=== PATIENT | female | born 1945 | race Caucasian/White ===

== ENCOUNTER → 2019-11-13 13:07 | Outpatient (BNVA) | payer MEDICARE, MEDICAID, SELFPAY | PROVIDERS: Family Provider Family Medicine; PCP Family Medicine; Visit Provider Internal Medicine Rheumatology | DX: M31.30 Wegener's granulomatosis without renal involvement (principal); Z79.899 Other long term (current) drug therapy; Z79.52 Long term (current) use of systemic steroids; J44.9 Chronic obstructive pulmonary disease, unspecified; Z87.891 Personal history of nicotine dependence | CPT/HCPCS: 36415; 80053; 85007; 85027; 85651; 86140; 99214 ==

== ENCOUNTER → 2019-12-13 13:51 | Outpatient (BNVA) | payer MEDICARE, MEDICAID, SELFPAY | PROVIDERS: Family Provider Family Medicine; PCP Family Medicine; Visit Provider Social Worker | DX: F33.2 Major depressive disorder, recurrent severe without psychotic features (principal); F41.1 Generalized anxiety disorder | CPT/HCPCS: 90834 ==

== ENCOUNTER → 2019-12-18 10:21 | Outpatient (BNVA) | payer MEDICARE, MEDICAID, SELFPAY | PROVIDERS: Family Provider Family Medicine; PCP Family Medicine; Visit Provider Internal Medicine Rheumatology | DX: M31.30 Wegener's granulomatosis without renal involvement (principal); M80.00XD Age-related osteoporosis with current pathological fracture, unspecified site, subsequent encounter for fracture with routine healing; M05.79 Rheumatoid arthritis with rheumatoid factor of multiple sites without organ or systems involvement; M87.08 Idiopathic aseptic necrosis of bone, other site; Z79.52 Long term (current) use of systemic steroids; J44.9 Chronic obstructive pulmonary disease, unspecified | CPT/HCPCS: 99214 ==

== ENCOUNTER → 2019-12-19 14:02 | Outpatient (BNVA) | payer MEDICARE, MEDICAID, SELFPAY | PROVIDERS: Family Provider Family Medicine; PCP Family Medicine; Visit Provider Anesthesiology | DX: M48.061 Spinal stenosis, lumbar region without neurogenic claudication (principal); M51.17 Intervertebral disc disorders with radiculopathy, lumbosacral region; Z79.891 Long term (current) use of opiate analgesic | CPT/HCPCS: 99214 ==

== ENCOUNTER → 2020-01-04 11:47 | Outpatient (BNVA) | payer MEDICARE, MEDICAID, SELFPAY | PROVIDERS: Family Provider Family Medicine; PCP Family Medicine; Visit Provider Family Medicine | DX: N39.0 Urinary tract infection, site not specified (principal) | CPT/HCPCS: 81001; 87086 ==

== ENCOUNTER 2020-01-10 12:59 | Outpatient (CLI) | payer MEDICARE, MEDICAID, SELFPAY ==
[2020-01-10 13:59] LABS: Calcium 9.1 mg/dL (8.5-10.5); Phosphorus 3.7 mg/dL (2.5-4.5)
[2020-01-10 14:23] LABS: Calcium 9.1 mg/dL (8.5-10.5); Parathyroid Hormone 45.3 pg/mL (15-65)
== END 2020-01-10 13:00 | disposition home or self-care (01) ==
LOC: LAB 13:06
PROVIDERS: Family Provider Family Medicine; PCP Family Medicine; Visit Provider Internal Medicine Rheumatology
DX: M81.0 Age-related osteoporosis without current pathological fracture (principal); M05.79 Rheumatoid arthritis with rheumatoid factor of multiple sites without organ or systems involvement; M87.08 Idiopathic aseptic necrosis of bone, other site; M31.30 Wegener's granulomatosis without renal involvement
CPT/HCPCS: 82310; 83970; 84100

== ENCOUNTER → 2020-02-26 11:33 | Outpatient (BNVA) | payer MEDICARE, MEDICAID, SELFPAY | PROVIDERS: Family Provider Family Medicine; PCP Family Medicine; Visit Provider Nurse Practitioner Family | DX: M25.512 Pain in left shoulder (principal) | CPT/HCPCS: 71046; 73030 ==

== ENCOUNTER → 2020-04-21 15:13 | Outpatient (BNVA) | payer MEDICARE, MEDICAID, SELFPAY | PROVIDERS: Family Provider Family Medicine; PCP Family Medicine; Visit Provider Internal Medicine Rheumatology | DX: M31.30 Wegener's granulomatosis without renal involvement (principal); M05.79 Rheumatoid arthritis with rheumatoid factor of multiple sites without organ or systems involvement; Z79.899 Other long term (current) drug therapy; I10 Essential (primary) hypertension; I48.91 Unspecified atrial fibrillation; J44.9 Chronic obstructive pulmonary disease, unspecified; M81.0 Age-related osteoporosis without current pathological fracture; R79.89 Other specified abnormal findings of blood chemistry; Z79.01 Long term (current) use of anticoagulants; Z79.52 Long term (current) use of systemic steroids | CPT/HCPCS: 99214 ==

== ENCOUNTER → 2020-04-25 13:32 | Outpatient (BNVA) | payer MEDICARE, MEDICAID, SELFPAY | PROVIDERS: Family Provider Family Medicine; PCP Nurse Practitioner Family; Visit Provider Anesthesiology | DX: M54.42 Lumbago with sciatica, left side (principal); M54.9 Dorsalgia, unspecified; Z79.891 Long term (current) use of opiate analgesic | CPT/HCPCS: 99212; 99214 ==

== ENCOUNTER → 2020-05-20 09:50 | Outpatient (BNVA) | payer MEDICARE, MEDICAID, SELFPAY | PROVIDERS: Family Provider Family Medicine; PCP Nurse Practitioner Family; Visit Provider Anesthesiology | DX: M51.17 Intervertebral disc disorders with radiculopathy, lumbosacral region (principal); M48.061 Spinal stenosis, lumbar region without neurogenic claudication; M54.9 Dorsalgia, unspecified; Z79.891 Long term (current) use of opiate analgesic | CPT/HCPCS: 99213; 99214 ==

== ENCOUNTER → 2020-07-15 13:07 | Outpatient (BNVA) | payer MEDICARE, MEDICAID, SELFPAY | PROVIDERS: Family Provider Family Medicine; PCP Nurse Practitioner Family; Visit Provider Anesthesiology | DX: M48.061 Spinal stenosis, lumbar region without neurogenic claudication (principal); M51.17 Intervertebral disc disorders with radiculopathy, lumbosacral region; M54.9 Dorsalgia, unspecified; Z79.891 Long term (current) use of opiate analgesic | CPT/HCPCS: 99213; 99214 ==

== ENCOUNTER → 2020-09-02 13:38 | Outpatient (BNVA) | payer MEDICARE, MEDICAID, SELFPAY | PROVIDERS: Family Provider Family Medicine; PCP Nurse Practitioner Family; Visit Provider Anesthesiology | DX: M51.17 Intervertebral disc disorders with radiculopathy, lumbosacral region (principal); M54.9 Dorsalgia, unspecified; M48.061 Spinal stenosis, lumbar region without neurogenic claudication; Z79.891 Long term (current) use of opiate analgesic | CPT/HCPCS: 99213; 99214 ==

== ENCOUNTER → 2020-09-19 09:56 | Outpatient (BNVA) | payer MEDICARE, MEDICAID, SELFPAY | PROVIDERS: Family Provider Family Medicine; PCP Nurse Practitioner Family; Visit Provider Anesthesiology | DX: M51.17 Intervertebral disc disorders with radiculopathy, lumbosacral region (principal); M48.061 Spinal stenosis, lumbar region without neurogenic claudication; M54.9 Dorsalgia, unspecified; Z79.891 Long term (current) use of opiate analgesic | CPT/HCPCS: 99213; 99214 ==

== ENCOUNTER 2020-09-25 11:29 | Emergency (ER) | payer MEDICARE, MEDICAID, SELFPAY ==
[2020-09-25] VITALS (8 sets, daily range): BP systolic 110–136; BP diastolic 54–79; PULSE 71–86; RESP 14–16; TEMP 36.7; O2SAT 93–100; BMI 2530.8
--- NOTE | 2020-09-25 11:45 | XR_ITS ---
WS: [id number] Exam: XR chest 1V portable [id number] Date/Time of Exam: 09/25/2020 11:45 AM Reason For Exam: fever, weakness, r/o covid Comparison 02/26/2020. Chronic pulmonary changes noted in the right upper lobe. No acute infiltrates are seen. The lungs are fully inflated and otherwise clear. Heart size is normal. The mediastinum is not widened. Bony struc tures are intact. XR/XR chest 1V portable [id number] IMPRESSION: 1. Chronic right upper lobe changes. No acute process identified.
--- NOTE | 2020-09-25 11:46 | ECG_ITS ---
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 Measurements Intervals [place] Rate: 71 P: CT: QRS: -60 QRSD: 80 T: 60 QT: 355 QTc: 387 Interpretive Statements ATRIAL FIBRILLATION POSSIBLE RIGHT VENTRICULAR CONDUCTION DELAY [RSR (QR) IN V1/V2] LEFT ANTERIOR FASCICULAR BLOCK [QRS AXIS <= -45, QR IN I, RS IN II] Compared to ECG 09/05/2019 23:45:35 Left anterior fascicular block now present Left-axis deviation no longer present ST (T wave) deviation no longer present Electronically Signed On 09-25-2020 22:00:29 TRACK DRESSER by Kevin Da Silva M.D. [id number] f
[2020-09-25] MEDS: sodium chloride 0.9% 1,000 ML 75 ML IV (12:00)
[2020-09-25 12:33] LABS: Basophils % 0.3 %; Hematocrit 34.3 % (37.0-47.0); Hemoglobin 10.9 g/dL (11.5-15.3); Lymphocytes # 0.6 10^3/uL (0.8-4.8); Lymphocytes % 6.2 %; Mean Corpuscular HGB Conc 31.8 g/dL (30.0-36.0); Mean Corpuscular Hemoglobin 31.4 pg (28.0-34.0); Mean Corpuscular Volume 98.8 fL (81-99); Mean Platelet Volume 9.2 fL (7.4-10.4); Monocytes # 0.4 10^3/uL (0.2-0.9); Monocytes % 3.9 %; Neutrophils # 8.41 10^3/uL (1.8-7.7); Neutrophils % 89.4 %; Nucleated Red Blood Cells % 0 %; Platelet Count 226 10^3/cmm (130-400); Red Blood Count 3.47 10^6/uL (4.1-5.3); Red Cell Distribution Width 13.6 % (12.1-15.1); White Blood Count 9.4 10^3/uL (4.0-10.0)
[2020-09-25 12:48] LABS: SARS Covid-2 Antigen Negative (Negative)
--- NOTE | 2020-09-25 12:48 | W.ED.WEAKNES ---
HPI - Weakness General: Chief complaint: Weakness Stated complaint: Fever/Soreness Time Seen by Provider: 09/25/20 11:38 History of Present Illness: HPI Narrative: This patient is a 75-year-old female who comes in today with complaints of body aches, fever, weakness. She started feeling poorly a few days ago and has progressed. The fever was noted this morning. She has a history of chronic UTIs and takes Macrobid daily. She is also on prednisone for Lakhwinder's granulomatosis. Her is currently in the hospital and she has been visiting here quite a bit and has been under some stress because of this. Her daughter is with her today and concerned that she is not eating and drinking and taking care of her self. She had a documented fever at home but since has taken Tylenol and [place]. She was afebrile here. Her was diagnosed with Covid in mid August. He was admitted for some time then but is now here for unrelated issues. The patient herself says she has been tested multiple times but not since about the third week of August. Associated symptoms: Reports fever(s); Denies chest pain, chills, easy bruising, headache(s), nausea or vomiting Review of Systems General: Reports: 10 or more systems reviewed and unremarkable except in HPI and below Const: Reports: fever(s), fatigue and malaise; Denies: chills Eyes: Denies: change in vision ENMT: Denies: odynophagia Card: Denies: chest pain or swelling of feet/ankles Resp: Reports: dyspnea and non-productive cough; Denies: productive cough GI: Denies: abdominal pain, nausea or vomiting : Denies: flank pain or difficulty voiding Musc: Reports: extremity pain (Right arm); Denies: neck pain or back pain Skin/Breast: Denies: rash Neuro: Denies: headache(s), numbness in extremities or weakness in extremities [place]/Lymph: Denies: easy bruising or easy bleeding [facility] ED PFSH: Medical History Bisphosphonate-associated osteonecrosis of the jaw Dorsalgia, unspecified Intervertebral disc disorders with radiculopathy, lumbosacral region Osteoporosis Seropositive rheumatoid arthritis of multiple joints Spinal stenosis, lumbar region without neurogenic claudication 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) Surgical History H/O bilateral cataract extraction H/O hernia repair H/O thyroidectomy History of kyphoplasty in Back 11/21/[address] [place] [address] Gutierrez Hx laparoscopic cholecystectomy Family History Other Cancer Denies family history of Rheumatoid arthritis Diabetes Lupus Anesthesia complication Bleeding disorder Social History Smoking and tobacco status: never smoked Second hand smoke exposure: No Alcohol intake: never Marital status: Current occupational status: retired History of recent travel: No (12/18/19) Physical Exam Const: COMMON NORMALS: no acute distress, patient oriented x3, no limitations and alert GENERAL APPEARANCE: cooperative, comfortable, well kempt, frail appearing and other (Kyphotic) NUTRITIONAL APPEARANCE: thin HENMT: HEAD & SCALP: normal to inspection FACE & SINUS: normal facial exam Eye: GENERAL EYE: appearance normal, both eyes and all related structures Neck/C-Spine: COMMON NORMALS: supple, no meningeal signs and no JVD Chest: COMMONS NORMALS: normal inspection of the chest CHEST: Yes other (Kyphotic) Resp: COMMON NORMALS: normal respiratory effort, No use of accessory muscles and clear to auscultation bilaterally AUSCULTATION: clear to auscultation bilaterally Cardio: COMMON NORMALS: no JVD, regular rate, regular rhythm and No murmurs present (Cardio) RATE: regular rate RHYTHM: regular rhythm GI: COMMON NORMALS: Normal to inspection, nondistended, normoactive bowel sounds present, Soft to palpation and non-tender INSPECTION: Yes normal to inspection AUSCULTATION: Yes normoactive bowel sounds PALPATION: Yes Soft to palpation Back/Pelvis: COMMON NORMALS: thoracic and lumbar spine normal to inspection Extremity: COMMON NORMALS: normal to inspection Neuro: COMMON NORMALS: patient oriented x3, moves all extremities, no focal motor deficits and no sensory deficits noted SENSORIUM/ORIENTATION: Yes alert MENINGEAL SIGNS: Yes no meningeal signs Psych: COMMON NORMALS: mental status grossly normal, cooperative and normal affect APPEARANCE: Yes well kempt Skin: COMMON NORMALS: no rashes or lesions noted and turgor normal GENERAL SKIN EXAM: no rashes or lesions noted and turgor normal Course ED course: Ms. Pal had a pretty unremarkable work-up. She would like to go home and I see no reason why she cannot. We discussed the importance of making sure she is getting enough rest. Her is here in the hospital and she admits to being a worrier. She said she is having difficulty sleeping and we discussed some possible sleep medications. She is already on trazodone. I suggested a very tiny dose of Xanax and her daughter did not like the idea at all. I encouraged her to discuss these concerns with her primary care doctor. Vital Signs: Vital signs: Vital Signs Temperature 98.1 F 09/25/20 11:34 Pulse Rate 86 09/25/20 17:58 Respiratory Rate 14 09/25/20 17:58 Blood Pressure 129/76 09/25/20 17:58 Pulse Oximetry 93 09/25/20 17:58 MDM - Weakness Lab Data: Labs: Lab Results 09/25/20 09/25/20 09/25/20 Range/Units 12:15 12:15 12:15 WBC 9.4 (4.0-10.0) 10^3/ uL RBC 3.47 L (4.1-5.3) 10^6/u L Hgb 10.9 L (11.5-15.3) g/dL Hct 34.3 L (37.0-47.0) % MCV 98.8 (81-99) fL MCH 31.4 (28.0-34.0) pg MCHC 31.8 (30.0-36.0) g/dL RDW 13.6 (12.1-15.1) % Plt Count 226 (130-400) 10^3/c mm MPV 9.2 (7.4-10.4) fL Neut % (Auto) 89.4 % Lymph % (Auto) 6.2 % Butts % (Auto) 3.9 % Eos % (Auto) 0.0 % Baso % (Auto) 0.3 % Neut # (Auto) 8.41 H (1.8-7.7) 10^3/u L Lymph # (Auto) 0.6 L (0.8-4.8) 10^3/u L Butts # (Auto) 0.4 (0.2-0.9) 10^3/u L Eos # (Auto) 0.0 (0.0-0.8) 10^3/u L Baso # (Auto) 0.0 (0.0-0.1) 10^3/u L Nucleated RBC % (a uto) 0 % Nucleated RBCs # 0.0 /100WBC PT 18.10 H (12.1-14.9) SECO NDS INR 1.45 H (0.8-1.2) Fibrinogen 462 (174-498) mg/dL D-Dimer 6.92 H (0-0.59) ug/mIFE U Sodium 138 (136-145) mmol/L Potassium 4.1 (3.5-5.1) mmol/L Chloride 99 (98-107) mmol/L Carbon Dioxide 25 (22-29) mmol/L Anion Gap 18.1 (5-19) BUN 14 (8-23) mg/dL Creatinine 0.6 (0.5-0.9) mg/dL GFR Calculation Not Reportable Glucose 117 H (65-115) mg/dL Calculated Osmolal ity 288 (285-295) mOsm/k g Lactic Acid (0.5-2.2) mmol/L Lactic Acid (Sepsi s) (0.5-2.2) mmol/L Calcium 8.7 (8.5-10.5) mg/dL Magnesium 1.8 (1.7-2.3) mg/dL Ferritin 136 (15-150) ng/mL Total Bilirubin 0.6 (0.15-1.2) mg/dL AST 13 (0-32) U/L ALT 6 (0-33) U/L Alkaline Phosphata se 67 (35-105) IU/L Lactate Dehydrogen ase 183 (135-214) U/L Troponin T Baselin e (0-10) ng/L Troponin T 120 Min seminole (0-10) ng/L Delta Troponin T (0-10) ABS# C-Reactive Protein 32.4 H (0.0-4.9) mg/L NT-Pro-B Natriuret Pep 2608 H (0-450) pg/mL Total Protein 6.1 L (6.6-8.7) g/dL Albumin 3.3 L (3.5-5.2) g/dL Globulin 2.8 (1.3-4.6) g/dL Procalcitonin 0.10 (0-0.5) ng/mL Urine Color (Yellow) Urine Appearance (CLEAR) Urine pH (5-7) Ur Specific Gravit y (1.005-1.030) Urine Protein (Negative) Urine Glucose (UA) (Normal) Urine Ketones (Negative) Urine Blood (Negative) Urine Nitrate (Negative) Urine Bilirubin (Negative) Urine Urobilinogen (Negative) mg/dL Ur Leukocyte Aixa ase (Negative) Urine RBC (0-2) /hpf Urine WBC (0-5) /hpf Ur Squamous Epith Cells (0-5) /hpf Ur Transition Epit h Cell /hpf Amorphous Sediment Urine Bacteria (NONE) /hpf Urine Mucus /hpf Digoxin (0.6-1.2) ng/mL Influenza Type A A g (Negative) Influenza Type B A g (Negative) SARS-CoV-2 Ag (Rap id) (Negative) 09/25/20 09/25/20 09/25/20 Range/Units 12:15 12:15 12:15 WBC (4.0-10.0) 10^3/ uL RBC (4.1-5.3) 10^6/u L Hgb (11.5-15.3) g/dL Hct (37.0-47.0) % MCV (81-99) fL MCH (28.0-34.0) pg MCHC (30.0-36.0) g/dL RDW (12.1-15.1) % Plt Count (130-400) 10^3/c mm MPV (7.4-10.4) fL Neut % (Auto) % Lymph % (Auto) % Butts % (Auto) % Eos % (Auto) % Baso % (Auto) % Neut # (Auto) (1.8-7.7) 10^3/u L Lymph # (Auto) (0.8-4.8) 10^3/u L Butts # (Auto) (0.2-0.9) 10^3/u L Eos # (Auto) (0.0-0.8) 10^3/u L Baso # (Auto) (0.0-0.1) 10^3/u L Nucleated RBC % (a uto) % Nucleated RBCs # /100WBC PT (12.1-14.9) SECO NDS INR (0.8-1.2) Fibrinogen (174-498) mg/dL D-Dimer (0-0.59) ug/mIFE U Sodium (136-145) mmol/L Potassium (3.5-5.1) mmol/L Chloride (98-107) mmol/L Carbon Dioxide (22-29) mmol/L Anion Gap (5-19) BUN (8-23) mg/dL Creatinine (0.5-0.9) mg/dL GFR Calculation Glucose (65-115) mg/dL Calculated Osmolal ity (285-295) mOsm/k g Lactic Acid 2.4 H (0.5-2.2) mmol/L Lactic Acid (Sepsi s) (0.5-2.2) mmol/L Calcium (8.5-10.5) mg/dL Magnesium (1.7-2.3) mg/dL Ferritin (15-150) ng/mL Total Bilirubin (0.15-1.2) mg/dL AST (0-32) U/L ALT (0-33) U/L Alkaline Phosphata se (35-105) IU/L Lactate Dehydrogen ase (135-214) U/L Troponin T Baselin e 45 H (0-10) ng/L Troponin T 120 Min seminole (0-10) ng/L Delta Troponin T (0-10) ABS# C-Reactive Protein (0.0-4.9) mg/L NT-Pro-B Natriuret Pep (0-450) pg/mL Total Protein (6.6-8.7) g/dL Albumin (3.5-5.2) g/dL Globulin (1.3-4.6) g/dL Procalcitonin (0-0.5) ng/mL Urine Color (Yellow) Urine Appearance (CLEAR) Urine pH (5-7) Ur Specific Gravit y (1.005-1.030) Urine Protein (Negative) Urine Glucose (UA) (Normal) Urine Ketones (Negative) Urine Blood (Negative) Urine Nitrate (Negative) Urine Bilirubin (Negative) Urine Urobilinogen (Negative) mg/dL Ur Leukocyte Aixa ase (Negative) Urine RBC (0-2) /hpf Urine WBC (0-5) /hpf Ur Squamous Epith Cells (0-5) /hpf Ur Transition Epit h Cell /hpf Amorphous Sediment Urine Bacteria (NONE) /hpf Urine Mucus /hpf Digoxin (0.6-1.2) ng/mL Influenza Type A A g Negative (Negative) Influenza Type B A g Negative (Negative) SARS-CoV-2 Ag (Rap id) (Negative) 09/25/20 09/25/20 09/25/20 Range/Units 12:15 12:15 13:45 WBC (4.0-10.0) 10^3/ uL RBC (4.1-5.3) 10^6/u L Hgb (11.5-15.3) g/dL Hct (37.0-47.0) % MCV (81-99) fL MCH (28.0-34.0) pg MCHC (30.0-36.0) g/dL RDW (12.1-15.1) % Plt Count (130-400) 10^3/c mm MPV (7.4-10.4) fL Neut % (Auto) % Lymph % (Auto) % Butts % (Auto) % Eos % (Auto) % Baso % (Auto) % Neut # (Auto) (1.8-7.7) 10^3/u L Lymph # (Auto) (0.8-4.8) 10^3/u L Butts # (Auto) (0.2-0.9) 10^3/u L Eos # (Auto) (0.0-0.8) 10^3/u L Baso # (Auto) (0.0-0.1) 10^3/u L Nucleated RBC % (a uto) % Nucleated RBCs # /100WBC PT (12.1-14.9) SECO NDS INR (0.8-1.2) Fibrinogen (174-498) mg/dL D-Dimer (0-0.59) ug/mIFE U Sodium (136-145) mmol/L Potassium (3.5-5.1) mmol/L Chloride (98-107) mmol/L Carbon Dioxide (22-29) mmol/L Anion Gap (5-19) BUN (8-23) mg/dL Creatinine (0.5-0.9) mg/dL GFR Calculation Glucose (65-115) mg/dL Calculated Osmolal ity (285-295) mOsm/k g Lactic Acid (0.5-2.2) mmol/L Lactic Acid (Sepsi s) (0.5-2.2) mmol/L Calcium (8.5-10.5) mg/dL Magnesium (1.7-2.3) mg/dL Ferritin (15-150) ng/mL Total Bilirubin (0.15-1.2) mg/dL AST (0-32) U/L ALT (0-33) U/L Alkaline Phosphata se (35-105) IU/L Lactate Dehydrogen ase (135-214) U/L Troponin T Baselin e (0-10) ng/L Troponin T 120 Min seminole (0-10) ng/L Delta Troponin T (0-10) ABS# C-Reactive Protein (0.0-4.9) mg/L NT-Pro-B Natriuret Pep (0-450) pg/mL Total Protein (6.6-8.7) g/dL Albumin (3.5-5.2) g/dL Globulin (1.3-4.6) g/dL Procalcitonin (0-0.5) ng/mL Urine Color Yellow (Yellow) Urine Appearance Clear (CLEAR) Urine pH 7 (5-7) Ur Specific Gravit y 1.010 (1.005-1.030) Urine Protein Neg (Negative) Urine Glucose (UA) Norm (Normal) Urine Ketones Negative (Negative) Urine Blood Neg (Negative) Urine Nitrate Negative (Negative) Urine Bilirubin Neg (Negative) Urine Urobilinogen Norm (Negative) mg/dL Ur Leukocyte Aixa ase 1+ H (Negative) Urine RBC Rare (0-2) /hpf Urine WBC 5-10 H (0-5) /hpf Ur Squamous Epith Cells 0-4 H (0-5) /hpf Ur Transition Epit h Cell 0-4 /hpf Amorphous Sediment Not Reportable Urine Bacteria Trace (NONE) /hpf Urine Mucus Trace /hpf Digoxin 1.5 H (0.6-1.2) ng/mL Influenza Type A A g (Negative) Influenza Type B A g (Negative) SARS-CoV-2 Ag (Rap id) Negative (Negative) 09/25/20 09/25/20 Range/Units 14:11 14:11 WBC (4.0-10.0) 10^3/ uL RBC (4.1-5.3) 10^6/u L Hgb (11.5-15.3) g/dL Hct (37.0-47.0) % MCV (81-99) fL MCH (28.0-34.0) pg MCHC (30.0-36.0) g/dL RDW (12.1-15.1) % Plt Count (130-400) 10^3/c mm MPV (7.4-10.4) fL Neut % (Auto) % Lymph % (Auto) % Butts % (Auto) % Eos % (Auto) % Baso % (Auto) % Neut # (Auto) (1.8-7.7) 10^3/u L Lymph # (Auto) (0.8-4.8) 10^3/u L Butts # (Auto) (0.2-0.9) 10^3/u L Eos # (Auto) (0.0-0.8) 10^3/u L Baso # (Auto) (0.0-0.1) 10^3/u L Nucleated RBC % (a uto) % Nucleated RBCs # /100WBC PT (12.1-14.9) SECO NDS INR (0.8-1.2) Fibrinogen (174-498) mg/dL D-Dimer (0-0.59) ug/mIFE U Sodium (136-145) mmol/L Potassium (3.5-5.1) mmol/L Chloride (98-107) mmol/L Carbon Dioxide (22-29) mmol/L Anion Gap (5-19) BUN (8-23) mg/dL Creatinine (0.5-0.9) mg/dL GFR Calculation Glucose (65-115) mg/dL Calculated Osmolal ity (285-295) mOsm/k g Lactic Acid (0.5-2.2) mmol/L Lactic Acid (Sepsi s) 0.9 (0.5-2.2) mmol/L Calcium (8.5-10.5) mg/dL Magnesium (1.7-2.3) mg/dL Ferritin (15-150) ng/mL Total Bilirubin (0.15-1.2) mg/dL AST (0-32) U/L ALT (0-33) U/L Alkaline Phosphata se (35-105) IU/L Lactate Dehydrogen ase (135-214) U/L Troponin T Baselin e (0-10) ng/L Troponin T 120 Min seminole 41.97 H (0-10) ng/L Delta Troponin T -3.03 L (0-10) ABS# C-Reactive Protein (0.0-4.9) mg/L NT-Pro-B Natriuret Pep (0-450) pg/mL Total Protein (6.6-8.7) g/dL Albumin (3.5-5.2) g/dL Globulin (1.3-4.6) g/dL Procalcitonin (0-0.5) ng/mL Urine Color (Yellow) Urine Appearance (CLEAR) Urine pH (5-7) Ur Specific Gravit y (1.005-1.030) Urine Protein (Negative) Urine Glucose (UA) (Normal) Urine Ketones (Negative) Urine Blood (Negative) Urine Nitrate (Negative) Urine Bilirubin (Negative) Urine Urobilinogen (Negative) mg/dL Ur Leukocyte Aixa ase (Negative) Urine RBC (0-2) /hpf Urine WBC (0-5) /hpf Ur Squamous Epith Cells (0-5) /hpf Ur Transition Epit h Cell /hpf Amorphous Sediment Urine Bacteria (NONE) /hpf Urine Mucus /hpf Digoxin (0.6-1.2) ng/mL Influenza Type A A g (Negative) Influenza Type B A g (Negative) SARS-CoV-2 Ag (Rap id) (Negative) Discharge Plan Discharge Patient Disposition: Home Clinical Impression: Episode of generalized weakness Condition: Stable Prescriptions: New Xanax 0.25 mg tablet 0.125 mg PO DAILY PRN (Reason: sleep) Qty: 10 RF: 0 No Action metoprolol tartrate 50 mg tablet 50 mg PO BID RF: 0 ferrous sulfate 325 mg (65 mg iron) tablet 325 mg PO BID RF: 0 Lactobacillus acidophilus 1 billion cell capsule 1,000 mmu cells PO .COMPLEX RF: 0 triamcinolone acetonide 55 mcg/actuation aerosol See Rx Instructions INTRANASAL DAILY RF: 0 hydrocortisone [Anusol-HC] 2.5 % cream with perineal applicator 1 applic OH TID PRN (Reason: UNKNOWN) RF: 0 Allergy Eye (naphazoline-phen) 0.025-0.3 % drops 2 drop ophthalmic (eye) DAILY RF: 0 btmokmii-ojphwrgzi-SX Drops,Suspension See Rx Instructions EAR-BOTH TID RF: 0 prednisone 10 mg tablet 10 mg PO TID RF: 0 nitrofurantoin macrocrystal 100 mg capsule 100 mg PO BEDTIME RF: 0 baclofen 10 mg tablet 10 mg PO TID 30 Days Qty: 90 RF: 0 furosemide [Lasix] 20 mg tablet 20 mg PO DAILY RF: 0 gabapentin 100 mg capsule 100 mg PO TID 30 Days Qty: 90 RF: 1 trazodone 100 mg tablet 100 mg PO .HS Qty: 30 RF: 5 lamotrigine 25 mg tablet 25 mg PO BID Qty: 60 RF: 5 Eliquis 5 mg tablet 5 mg PO BID Qty: 60 RF: 5 potassium chloride 10 mEq tablet extended release 10 meq PO BID Qty: 60 RF: 5 levothyroxine 75 mcg tablet 75 mcg PO DAILY Qty: 30 RF: 1 mirtazapine 7.5 mg tablet 7.5 mg PO DAILY Qty: 30 RF: 2 pantoprazole 40 mg tablet,delayed release (DR/EC) 40 mg PO DAILY Qty: 30 RF: 5 digoxin 125 mcg (0.125 mg) tablet 125 mcg PO DAILY Qty: 90 RF: 3 sertraline 100 mg tablet See Rx Instructions .ROUTE .COMPLEX Qty: 30 RF: 3 Magic Mouthwash See Rx Instructions .ROUTE .COMPLEX RF: 0 hydrocodone-acetaminophen 10-325 mg tablet 1 tab PO Q4H PRN (Reason: pain) RF: 0 buspirone 15 mg tablet 15 mg PO Q6H RF: 0 Discharge Orders: Discharge Order (Routine); Ordered 09/25/20 Ordered By: Ameena Ferguson Referrals: Toya Grider APN [Primary Care Provider] - Discharge Diet: Advance as tolerated Discharge Activity: Resume usual activity Patient Instructions: Weakness (ED) Activity Restrictions/Additional Instructions: Follow-up with your doctor to discuss medication changes. Try to rest and you can take 1/2 tablet of the alprazolam if you wake up early in the morning and cannot go back to sleep. Do not regularly take it at bedtime. Continue your regular trazodone at bedtime. Coding Level of Care Code ED Virology Teacher for Fili Fwjodi Exam Comprehensive
[2020-09-25 12:49] LABS: Influenza A by IFA Negative (Negative); Influenza B by IFA Negative (Negative)
[2020-09-25 12:50] LABS: Fibrinogen 462 mg/dL (174-498); INR 1.45 (0.8-1.2)
[2020-09-25 12:53] LABS: Lactic Sepsis W/Reflex 2.4 mmol/L (0.5-2.2)
[2020-09-25 12:55] LABS: Add Urine Microscopic? YES; Bilirubin Urine Neg (Negative); Blood Urine Neg (Negative); Glucose Urine UA Norm (Normal); Ketones Urine Negative (Negative); Leukocyte Esterase Urine 1+ (Negative); Nitrate Urine Negative (Negative); Protein Urine Neg (Negative); Urine Appearance Clear (CLEAR); Urine Color Yellow (Yellow); Urobilinogen Urine Norm (Negative); pH Urine 7 (5-7)
[2020-09-25 12:56] LABS: Bacteria Urine TRACE /hpf; RBC Urine RARE /hpf (0-2); Squamous Epithelial Cell Urine 0-4 /hpf (0-5); Transitional Epi Cells Urine 0-4 /hpf
[2020-09-25 12:57] LABS: Add Urine Culture? No; Mucus Urine TRACE /hpf; Troponin(5th) Baseline 45 ng/L (0-10)
[2020-09-25 13:00] LABS: D Dimer 6.92 ug/mIFEU (0-0.59)
--- NOTE | 2020-09-25 13:46 | ECG_ITS ---
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 Measurements Intervals [place] Rate: 89 P: RI: QRS: -56 QRSD: 81 T: 166 QT: 345 QTc: 420 Interpretive Statements ATRIAL FIBRILLATION LEFT ANTERIOR FASCICULAR BLOCK [QRS AXIS <= -45, QR IN I, RS IN II] NONSPECIFIC ST & T-WAVE ABNORMALITY Compared to ECG 09/25/2020 12:01:46 T-wave abnormality now present Electronically Signed On 09-25-2020 22:04:13 JEWEL DIAMETER GAUGER by Kevin Da Silva M.D. [id number]
[2020-09-25 13:59] LABS: Alanine Aminotransferase 6 U/L (0-33); Alkaline Phosphatase 67 IU/L (35-105); Anion Gap 18.1 (5-19); Aspartate Amino Transferase 13 U/L (0-32); Blood Urea Nitrogen 14 mg/dL (8-23); Calcium 8.7 mg/dL (8.5-10.5); Carbon Dioxide 25 mmol/L (22-29); Chloride 99 mmol/L (98-107); Ferritin 136 ng/mL (15-150); Globulin 2.8 g/dL (1.3-4.6); Lactate Dehydrogenase 183 U/L (135-214); Magnesium 1.8 mg/dL (1.7-2.3); Osmolality Calculated 288 mOsm/kg (285-295); Potassium 4.1 mmol/L (3.5-5.1); Sodium 138 mmol/L (136-145); Total Bilirubin 0.6 mg/dL (0.15-1.2)
[2020-09-25 14:10] LABS: Reflex Lactate Order REFLEX LACTIC ORDERD
--- NOTE | 2020-09-25 14:10 | CTR_ITS ---
PROCEDURE INFORMATION: Exam: CT Angiography Chest With Contrast Exam date and time: 09/25/2020 3:21 PM Age: 75 years old Clinical indication: Abnormal findings; Abnormal lab test; Other: Elevated d dimber; Fever; Abnormal diagnostic tests; Elevated d-dimer; Patient HX: Contrast leak, rescanned pulmonary study; Additional info: Fever, malaise, high d-dimer TECHNIQUE: Imaging protocol: Computed tomographic angiography of the chest with intravenous contrast. 3D rendering (Not supervised by radiologist): MIP and/or 3D reconstructed images were created by the technologist. Radiation optimization: All CT scans at this facility use at least one of these dose optimization techniques: automated exposure control; mA and/or kV adjustment per patient size (includes targeted exams where dose is matched to clinical indication); or iterative reconstruction. Contrast material: OMNI 350; Contrast volume: 95 ml; Contrast route: INTRAVENOUS (IV); COMPARISON: No relevant prior studies available. RADIATION DOSE METRICS: Total DLP (mGy-cm): 1308.97 FINDINGS: Pulmonary arteries: Normal. No pulmonary emboli. Aorta: Ectatic/tortuous thoracic aorta with moderate atherosclerotic calcification. Lungs: Relatively thick strands of fibrosis or atelectasis coursing through both upper lobes. Thinner subpleural reticular opacities in the lung bases suggesting mild pulmonary fibrosis or minor atelectasis. 5 mm partially calcified subpleural nodule posterior medial aspect of right lower lobe. 2.5 mm noncalcified subpleural nodule superior aspect of right middle lobe. 4 mm noncalcified subpleural nodule inferior-lateral aspect of left lower lobe. Pleural space: Unremarkable. No pneumothorax. No pleural effusion. Heart: Unremarkable. No cardiomegaly. No pericardial effusion. Lymph nodes: Unremarkable. No enlarged lymph nodes. Bones/joints: Exaggerated thoracic kyphosis with numerous mid and lower thoracic spine vertebral body compression fractures, presumably chronic. Soft tissues: Unremarkable. IMPRESSION: 1.) No acute process evident. 2.) Chronic appearing lung findings as described above including thick strands of fibrosis or atelectasis both upper lobes. 3.) Small 3-4 mm subpleural nodules as described above. Per Fleischner Society guidelines, low risk patient no routine follow-up indicated. High risk patient, consider optional CT chest at 12 months. PROCEDURE INFORMATION: Exam: CT Abdomen And Pelvis With Contrast Exam date and time: 09/25/2020 3:21 PM Age: 75 years old Clinical indication: Abnormal findings; Abnormal lab test; Other: Elevated d dimber; Fever; Abnormal diagnostic tests; Elevated d-dimer; Patient HX: Contrast leak, rescanned pulmonary study; Additional info: Fever, malaise, high d-dimer TECHNIQUE: Imaging protocol: Computed tomography of the abdomen and pelvis with intravenous contrast. Radiation optimization: All CT scans at this facility use at least one of these dose optimization techniques: automated exposure control; mA and/or kV adjustment per patient size (includes targeted exams where dose is matched to clinical indication); or iterative reconstruction. Contrast material: OMNI 350; Contrast volume: 95 ml; Contrast route: INTRAVENOUS (IV); COMPARISON: No relevant prior studies available. RADIATION DOSE METRICS: Total DLP (mGy-cm): 1308.97 FINDINGS: Liver: Normal. No mass. Gallbladder and bile ducts: Normal. No calcified stones. No ductal dilation. Pancreas: Normal. No ductal dilation. Spleen: Normal. No splenomegaly. Adrenal glands: Normal. No mass. Kidneys and ureters: Normal. No hydronephrosis. Stomach and bowel: Moderately pronounced sigmoid colon diverticulosis changes. No evidence for acute diverticulitis. Appendix: No evidence of appendicitis. Intraperitoneal space: Unremarkable. No free air. No significant fluid collection. Vasculature: Tortuous aorta and iliac arteries with mild atherosclerotic calcification. No aneurysm. Lymph nodes: Unremarkable. No enlarged lymph nodes. Urinary bladder: Unremarkable as visualized. Reproductive: Unremarkable as visualized. Bones/joints: Broad thoracolumbar dextroscoliosis. Multiple lumbar spine vertebral body compression fractures which are presumably chronic. Prior L3 and L5 cement injections. Soft tissues: Unremarkable. CT/CT angio chest w abd pel w con IMPRESSION: 1.) No acute process evident. 2.) Chronic findings as described above. Numerous chronic appearing thoracic and lumbar spine vertebral body compression fractures. Radiation Dose CTDIVOL = (mGy): DLP = 1308.97~1308.97 (mGy-cm)
[2020-09-25 14:18] LABS: Digoxin 1.5 ng/mL (0.6-1.2)
[2020-09-25 14:44] LABS: Lactic Acid level (Lactate) 0.9 mmol/L (0.5-2.2)
[2020-09-25 14:46] LABS: Troponin 5 2HR 41.97 ng/L (0-10)
[2020-09-25 14:47] LABS: Troponin 5 2HR Delta -3.03 ABS# (0-10)
[2020-09-25 14:52] LABS: Albumin Level 3.3 g/dL (3.5-5.2); C Reactive Protein 32.4 mg/L (0.0-4.9); Glucose 117 mg/dL (65-115); Total Protein 6.1 g/dL (6.6-8.7)
[2020-09-25 14:54] LABS: NT Pro B Type Natriuretic Pept 2608 pg/mL (0-450)
== END 2020-09-25 17:59 | disposition home or self-care (01) ==
PROVIDERS: Emergency Provider Emergency Medicine; PCP Nurse Practitioner Family
DX: R53.1 Weakness (principal); Z79.01 Long term (current) use of anticoagulants
CPT/HCPCS: 12345; 36415; 71045; 71275; 74177; 80053; 80162; 81001; 82728; 83605; 83615; 83735; 83880; 84145; 84484; 85025; 85378; 85384; 85610; 86140; 87040; 87426; 87804; 93005; 96360; 96361; 99283; 99284; J7030

== ENCOUNTER → 2020-12-02 14:19 | Outpatient (BNVA) | payer MEDICARE, MEDICAID, SELFPAY | PROVIDERS: PCP Nurse Practitioner Family; Visit Provider Nurse Practitioner | DX: M48.061 Spinal stenosis, lumbar region without neurogenic claudication (principal); M51.17 Intervertebral disc disorders with radiculopathy, lumbosacral region; M54.9 Dorsalgia, unspecified; M25.512 Pain in left shoulder; M05.79 Rheumatoid arthritis with rheumatoid factor of multiple sites without organ or systems involvement; Z79.891 Long term (current) use of opiate analgesic | CPT/HCPCS: 99214 ==